=== PATIENT | male | born 1940 | race Caucasian/White ===

== ENCOUNTER 2017-09-16 07:48 | Day surgery (SDC) | payer MEDICARE, OTHER ==
[2017-09-16] MEDS ORDERED: Labetalol 20 MG/4 ML Syringe IV ONE (07:49)
[2017-09-16] MEDS ORDERED: Midazolam 1 MG/ML 2 ML SDV IV ONE (07:49)
[2017-09-16] MEDS ORDERED: Dexamethasone 4 MG/ML SDV IV ONE (07:49)
[2017-09-16] MEDS ORDERED: Sodium Chloride 0.9% 10 ML Syringe IV ONE (07:49)
[2017-09-16] MEDS ORDERED: Proparacaine 0.5% Ophth Soln 15 ML Bottle EYELF ONE (08:30)
[2017-09-16] MEDS ORDERED: Ondansetron 4 MG/2 ML SDV IVPUSH PRN (08:30)
[2017-09-16] MEDS ORDERED: Povidone-Iodine 5% Sterile Ophth Soln 30 ML Bottle EYELF ONE ×2 (08:30→09:33)
[2017-09-16] MEDS ORDERED: Acetaminophen 325 MG Tab PO PRN (08:30)
[2017-09-16] MEDS ORDERED: Phenylephrine 10% Ophth Soln 5 ML Bot EYELF PRN (08:30)
[2017-09-16] MEDS ORDERED: Phenylephrine 10% Ophth Soln 5 ML Bot EYELF ONE (08:30)
[2017-09-16] MEDS ORDERED: Cataract Ophth Solution EYELF ONE (08:30)
[2017-09-16] MEDS ORDERED: Sodium Chloride 0.9% 10 ML Syringe FLUSH PRN (08:30)
[2017-09-16] MEDS ORDERED: Timolol Maleate 0.5% Ophth Soln 5 ML Bottle EYELF ONE (08:30)
[2017-09-16] MEDS ORDERED: Moxifloxacin 0.5% Ophth Soln 3 ML Bottle EYELF ONE (08:30)
[2017-09-16] MEDS ORDERED: Tetracaine HCl/PF 0.5% 4 ML Bottle EYELF ONE (09:33)
[2017-09-16] MEDS ORDERED: Lidocaine 1% 30 ML SDV ONE (09:33)
[2017-09-16] MEDS ORDERED: Dexamethasone/Neomycin/Polymyxin B Ophth Oint 3.5 GM Tube EYELF ONE (09:34)
[2017-09-16] MEDS ORDERED: Apraclonidine 0.5% Ophth Soln 5 ML Bot EYELF ONE (09:34)
[2017-09-16] MEDS ORDERED: Acetylcholine 20 MG/2 ML Intraocular Inj Kit EYELF ONE (09:34)
[2017-09-16] MEDS ORDERED: Vancomycin 500 MG SDV EYELF ONE (09:35)
[2017-09-16] MEDS ORDERED: Balanced Salt Solution Ophth Irrig 500 ML Bottle IOCULAR ONE (09:36)
[2017-09-16] MEDS ORDERED: Chondroitin Sulfate/Hyaluronate Sodium Ophth Inj 0.5 ML Syringe IOCULAR ONE (09:36)
[2017-09-16] MEDS ORDERED: Chondroitin Sulfate/Hyaluronate Sodium Ophth Inj 0.75 ML Syringe EYELF ONE (09:36)
--- NOTE | 2017-09-16 10:59 | OR ---
DATE: 09/16/2017 PREOPERATIVE DIAGNOSES: 1. Visually significant mixed cataract, left eye. 2. Primary open angle glaucoma, left eye. POSTOPERATIVE DIAGNOSES: 1. Visually significant mixed cataract, left eye. 2. Primary open angle glaucoma, left eye. PROCEDURES: 1. Extracapsular cataract extraction with intraocular lens implant. 2. Placement of iStent for glaucoma control. SURGEON: Alexandro Anthony MD. ANESTHESIA: Local MAC. INDICATION: Mr. Russell was seen in the clinic. His clinical examination reveals mixed nuclear, cortical, and posterior subcapsular cataract. He is symptomatic with complaints of blurred vision, difficulty with near tasks. His examination also reveals mild primary open-angle glaucoma. I explained options to Mr. Russell. I offered cataract surgery; and I explained risks preoperatively including the potential for infection, retinal detachment, loss of vision, and need for additional surgery. We discussed implant options. He has requested a monofocal implant. I offered surgery with or without the iStent. He requested the iStent procedure. OPERATIVE DESCRIPTION: The patient was prepped and draped in a sterile fashion and topical anesthesia was applied. Attention was placed on the operative eye. A sterile lid speculum was placed to allow operative exposure. Paracentesis was made temporal. Intracameral lidocaine was administered. Viscoelastic was injected. A full-thickness corneal incision was made using the trapezoidal blade. Bent needle cystotome was then used to make a small slim in the anterior capsule, and a 360-degree curvilinear capsulorrhexis was created. Nucleus was then hydrodissected and hydrodelinated using balanced saline solution. Nucleus was then decompressed centrally and rotated and noted to be free of adhesions. Nucleus was then removed using the phacoemulsification handpiece. Additional viscoelastic was then injected into the capsular bag, and the intraocular lens was inserted into the capsular bag. The iStent portion of the procedure was then performed. Following removal of the nucleus and cortex, the irrigation and aspiration handpiece was inserted to remove viscoelastic from the posterior surface of the IOL. Additional viscoelastic was then inserted into the anterior chamber angle directly opposite the corneal incision. Miochol was injected into the nasal iris to promote pupillary contraction. The patient's head was then rotated 35 degrees away from the initial position. The operating microscope was also rotated 35 degrees to achieve the proper orientation. The gonioprism was then placed onto the eye. The iStent was then inserted into the anterior chamber with the right hand, and the stent was introduced into the pigmented trabecular meshwork. The stent was advanced beneath the trabecular meshwork until approximately two-thirds of the body was covered, and then the stent was released from the insertion device. The stent was then tapped into its final resting position using the insertion device. The device was then reinspected to ensure that it was securely in position. The viscoelastic was aspirated from the anterior chamber. Wound and paracentesis sites were hydrated using balanced saline solution. Vancomycin 0.1 mL was injected into the anterior chamber. Intraocular lens was inspected and noted to be clear and well centered. Postoperative drops were placed, and a sterile eye patch and shield were placed over the operative eye. The patient was then transported to the postoperative recovery area having tolerated the procedure well. No complications occurred. [facility] /[id number]
== END 2017-09-16 10:45 | disposition home or self-care (01) ==
LOC: DL.SDS 07:48
PROVIDERS: ATTEND Ophthalmology
DX: H25.12 Age-related nuclear cataract, left eye (principal); H25.042 Posterior subcapsular polar age-related cataract, left eye; H40.1120 Primary open-angle glaucoma, left eye, stage unspecified; I25.10 Atherosclerotic heart disease of native coronary artery without angina pectoris; I48.91 Unspecified atrial fibrillation; M10.9 Gout, unspecified; I12.9 Hypertensive chronic kidney disease with stage 1 through stage 4 chronic kidney disease, or unspecified chronic kidney disease; N18.3 Chronic kidney disease, stage 3 (moderate); I25.2 Old myocardial infarction; E78.5 Hyperlipidemia, unspecified; Z79.899 Other long term (current) drug therapy; Z79.82 Long term (current) use of aspirin; Z88.8 Allergy status to other drugs, medicaments and biological substances; Z95.1 Presence of aortocoronary bypass graft; Z86.010 Personal history of colon polyps; Z90.49 Acquired absence of other specified parts of digestive tract; Z90.89 Acquired absence of other organs; Z98.890 Other specified postprocedural states
CPT/HCPCS: 00142; A9270-GY; C1783; J1100; J2250; J3370; J3490; J7050; V2632

== ENCOUNTER 2017-09-23 07:37 | Day surgery (SDC) | payer MEDICARE, OTHER ==
[2017-09-23] MEDS ORDERED: Sodium Chloride 0.9% 10 ML Syringe IV ONE (07:38)
[2017-09-23] MEDS ORDERED: Dexamethasone 4 MG/ML SDV IV ONE (07:38)
[2017-09-23] MEDS ORDERED: Midazolam 1 MG/ML 2 ML SDV IV ONE (07:38)
[2017-09-23] MEDS ORDERED: Dilation Soln 1 EA EACH EYERT ONE (08:00)
[2017-09-23] MEDS ORDERED: Timolol Maleate 0.5% Ophth Soln 5 ML Bottle EYERT ONE (08:00)
[2017-09-23] MEDS ORDERED: Acetaminophen 325 MG Tab PO PRN (08:00)
[2017-09-23] MEDS ORDERED: Ondansetron 4 MG/2 ML SDV IVPUSH PRN (08:00)
[2017-09-23] MEDS ORDERED: Povidone-Iodine 5% Sterile Ophth Soln 30 ML Bottle EYERT ONE ×2 (08:00→09:55)
[2017-09-23] MEDS ORDERED: Sodium Chloride 0.9% 10 ML Syringe FLUSH PRN (08:00)
[2017-09-23] MEDS ORDERED: Proparacaine 0.5% Ophth Soln 15 ML Bottle EYERT ONE (08:00)
[2017-09-23] MEDS ORDERED: Moxifloxacin 0.5% Ophth Soln 3 ML Bottle EYERT ONE (08:00)
[2017-09-23] MEDS ORDERED: Phenylephrine 10% Ophth Soln 5 ML Bot EYERT ONE (08:00)
[2017-09-23] MEDS ORDERED: Acetaminophen/Codeine 300-30 MG Tab PO PRN (08:00)
[2017-09-23] MEDS ORDERED: Tetracaine HCl/PF 0.5% 4 ML Bottle EYERT ONE (09:55)
[2017-09-23] MEDS ORDERED: Chondroitin Sulfate/Hyaluronate Sodium Ophth Inj 0.5 ML Syringe IOCULAR ONE (09:56)
[2017-09-23] MEDS ORDERED: Acetylcholine 20 MG/2 ML Intraocular Inj Kit EYERT ONE (09:56)
[2017-09-23] MEDS ORDERED: Lidocaine 1% 30 ML SDV ONE (09:56)
[2017-09-23] MEDS ORDERED: Balanced Salt Solution Ophth Irrig 500 ML Bottle IOCULAR ONE (09:57)
[2017-09-23] MEDS ORDERED: Chondroitin Sulfate/Hyaluronate Sodium Ophth Inj 0.75 ML Syringe EYERT ONE (09:57)
[2017-09-23] MEDS ORDERED: Vancomycin 500 MG SDV EYERT ONE (09:58)
[2017-09-23] MEDS ORDERED: Apraclonidine 0.5% Ophth Soln 5 ML Bot EYERT ONE (09:58)
[2017-09-23] MEDS ORDERED: Dexamethasone/Neomycin/Polymyxin B Ophth Oint 3.5 GM Tube EYERT ONE (09:59)
--- NOTE | 2017-09-23 10:45 | OR ---
DATE: 09/23/2017 PREOPERATIVE DIAGNOSES: 1. Visually significant mixed cataract, right eye. 2. Primary open angle glaucoma, right eye. POSTOPERATIVE DIAGNOSES: 1. Visually significant mixed cataract, right eye. 2. Primary open angle glaucoma, right eye. PROCEDURES: 1. Extracapsular cataract extraction with intraocular lens implant. 2. Placement of iStent for glaucoma control. SURGEON: Alexandro Anthony MD. ANESTHESIA: Local MAC. INDICATION: Mr. Russell was seen in the clinic. 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 Clinical examination reveals mixed nuclear, cortical, and posterior subcapsular cataract. I explained options to Mr. Russell. I offered cataract surgery; and I explained risks including the potential for infection, retinal detachment, loss of vision, and need for additional surgery amongst others. He also has a history of mild primary open-angle glaucoma. I offered surgery with or without the iStent. He requested the iStent procedure. OPERATIVE DESCRIPTION: The patient was prepped and draped in a sterile fashion and topical anesthesia was applied. Attention was placed on the operative eye. A sterile lid speculum was placed to allow operative exposure. Paracentesis was made temporal. Intracameral lidocaine was administered. Viscoelastic was injected. A full-thickness corneal incision was made using the trapezoidal blade. Bent needle cystotome was then used to make a small slim in the anterior capsule, and a 360-degree curvilinear capsulorrhexis was created. Nucleus was then hydrodissected and hydrodelinated using balanced saline solution. Nucleus was then decompressed centrally and rotated and noted to be free of adhesions. Nucleus was then removed using the phacoemulsification handpiece. Additional viscoelastic was then injected into the capsular bag, and the intraocular lens was inserted into the capsular bag. The iStent portion of the procedure was then performed. Following removal of the nucleus and cortex, the irrigation and aspiration handpiece was inserted to remove viscoelastic from the posterior surface of the IOL. Additional viscoelastic was then inserted into the anterior chamber angle directly opposite the corneal incision. Miochol was injected into the nasal iris to promote pupillary contraction. The patient's head was then rotated 35 degrees away from the initial position. The operating microscope was also rotated 35 degrees to achieve the proper orientation. The gonioprism was then placed onto the eye. The iStent was then inserted into the anterior chamber with the right hand, and the stent was introduced into the pigmented trabecular meshwork. The stent was advanced beneath the trabecular meshwork until approximately two-thirds of the body was covered, and then the stent was released from the insertion device. The stent was then tapped into its final resting position using the insertion device. The device was then reinspected to ensure that it was securely in position. The viscoelastic was aspirated from the anterior chamber. Wound and paracentesis sites were hydrated using balanced saline solution. Vancomycin 0.1 mL was injected into the anterior chamber. Intraocular lens was inspected and noted to be clear and well centered. Postoperative drops were placed, and a sterile eye patch and shield were placed over the operative eye. The patient was then transported to the postoperative recovery area having tolerated the procedure well. No complications occurred. [facility] /[id number]
== END 2017-09-23 10:55 | disposition home or self-care (01) ==
LOC: DL.SDS 07:37
PROVIDERS: ATTEND Ophthalmology
DX: H25.811 Combined forms of age-related cataract, right eye (principal); H40.1110 Primary open-angle glaucoma, right eye, stage unspecified; I12.9 Hypertensive chronic kidney disease with stage 1 through stage 4 chronic kidney disease, or unspecified chronic kidney disease; N18.3 Chronic kidney disease, stage 3 (moderate); I25.10 Atherosclerotic heart disease of native coronary artery without angina pectoris; I48.91 Unspecified atrial fibrillation; E78.5 Hyperlipidemia, unspecified; M1A.9XX0 Chronic gout, unspecified, without tophus (tophi); Z79.82 Long term (current) use of aspirin; Z79.899 Other long term (current) drug therapy; Z88.8 Allergy status to other drugs, medicaments and biological substances
CPT/HCPCS: 00142; 0191T; 66984; A9270; C1783; J1100; J2250; J3370; J7050; V2632